=== PATIENT | male | born 1990 | race Caucasian/White ===

== ENCOUNTER → 2018-01-08 | Outpatient (CLI) | payer OTHER ==
[~2018-01-08] MED LIST: OXYC1TAB3 PO
--- NOTE | 2018-01-08 08:52 | DIAGNOSTIC IMAGING REPORT ---
CHEST 2 VIEWS ROUTINE CLINICAL HISTORY: PNEUMOTHORAX pneumothorax COMPARISON STUDY: 01/07/2018. FINDINGS: slight increase in volume of a left apical pneumothorax. Maximum current pleural separation is 2.0 cm increased from 1.2 cm. Lungs appear clear. No evidence of infiltrate or pneumomediastinum IMPRESSION: Slight increase in volume of the left apical pneumothorax. Maximum pleural separation currently is 2.0 cm The above report was generated using voice recognition software. It may contain grammatical, syntax or spelling errors. Electronically signed by: Miguelito Schwartz M.D. 01/08/2018 8:51 AM Dictated Date/Time: 01/08/2018 8:49 AM
== END | disposition home or self-care (01) ==
LOC: C.RAD 08:35
DX: J93.9 Pneumothorax, unspecified (principal)

== ENCOUNTER → 2018-01-10 | Outpatient (CLI) | payer OTHER, BC ==
--- NOTE | 2018-01-10 14:40 | DIAGNOSTIC IMAGING REPORT ---
CHEST 2 VIEWS ROUTINE CLINICAL HISTORY: J93.9 [id number] pneumothorax COMPARISON STUDY: 01/08/2018 FINDINGS: Small persistent left apical pneumothorax. Maximum pleural separation currently is 1.5 cm improved from the prior study of 2.0 cm. Lungs otherwise remain clear. Diaphragms are smooth. Costophrenic angles sharp. IMPRESSION: Slight decrease in size of a small left apical pneumothorax. The above report was generated using voice recognition software. It may contain grammatical, syntax or spelling errors. Electronically signed by: Miguelito Schwartz M.D. 01/10/2018 2:38 PM Dictated Date/Time: 01/10/2018 2:37 PM
== END | disposition home or self-care (01) ==
LOC: C.RAD 14:07
PROVIDERS: ATTEND Surgery
DX: J93.9 Pneumothorax, unspecified (principal)